=== PATIENT | female | born 1970 | race Caucasian/White ===

== ENCOUNTER 2019-05-25 08:37 | Outpatient (RCR) | payer BC, SELFPAY | END 2019-06-21 23:59 | disposition home or self-care (01) | LOC: SPT 08:37 | PROVIDERS: Family Provider Family Medicine; PCP Family Medicine; Referring Provider Family Medicine; Visit Provider Family Medicine | DX: N39.3 Stress incontinence (female) (male) (principal) | CPT/HCPCS: 97110; 97161; 97530 ==

== ENCOUNTER 2019-06-01 08:24 | Outpatient (CLI) | payer BC, SELFPAY ==
--- NOTE | 2019-06-01 08:26 | MM_ITS ---
WS: [id number] BILATERAL SCREENING MAMMOGRAM WITH ELVIA DISPLACEMENT VIEWS. CAD PERFORMED. HISTORY: SCREENING COMPARISON: 04/02/2018, 12/29/2016, 06/11/2015 Bilateral craniocaudal and mediolateral like views are performed. Elvia displacement views in CC and MLO projection also performed. Breasts composition: The breasts are heterogeneously dense, which may obscure small masses. Lobulated soft tissue mass seen best on the medial lateral displacement view. Mass is lobulated and o f increased density measuring 12 mm in diameter. Favor this is in the lateral LEFT breast on the CC p rojection. There is an additional asymmetry measuring 5 mm on the RIGHT implant displacement CC view. Not defini tely visualized on the lateral projection. Implants remain intact with no rupture. LEFT breast: Spot compression views (CC and MLO). True ML. Ultrasound to follow if abnormality persis ts. Additional ultrasound evaluation of the LEFT axilla.e RIGHT breast: Spot compression views (CC ). True ML. Ultrasound to follow if abnormality persists. MM/[place] [id number] IMPRESSION: BI-RADS: 0-Incomplete: Need additional imaging evaluation FOLLOW-UP: Need Additional Imaging
== END 2019-06-01 08:25 | disposition home or self-care (01) ==
LOC: RADSHAW 08:24
PROVIDERS: Family Provider Family Medicine; PCP Family Medicine; Visit Provider Family Medicine
DX: Z12.31 Encounter for screening mammogram for malignant neoplasm of breast (principal)
CPT/HCPCS: 77067

== ENCOUNTER 2019-06-09 07:41 | Outpatient (CLI) | payer BC, SELFPAY ==
--- NOTE | 2019-06-09 07:44 | US_ITS ---
WS: [id number] Left breast ultrasound, 06/09/2019 Clinical Data: LT BREAST MASS Comparison: Mammogram additional views, 06/09/2019 Findings: In the upper outer quadrant of the left breast at the 12:00 position approximating the site of the 1. 27 cm density on the mammogram there are several small simple cysts. No abnormal masses are seen. US/US breast LT limited* [id number] Impression: Simple cysts in the upper outer quadrant left breast with no masses. Recommend annual screening mammograms. BIRADS: 2-Benign FOLLOW UP: 1 Year Follow-up
--- NOTE | 2019-06-09 07:44 | MM_ITS ---
WS: [id number] Bilateral diagnostic digital mammogram, 06/09/2019 Clinical Data: LT BREAST MASS/RT BREAST ASYMMETRY Comparison: 06/01/2019, 04/02/2018, 12/29/2016, 06/11/2015, 05/28/2015, 04/03/2014, 07/11/2010, 11/06/2008, . Findings: Additional views of the right breast included mediolateral and cc compression views. No abnormal mass es could be seen on either view. Additional views of the left breast included ML, and spot films in the CC and MLO projections. There is a 1.27 cm density in the upper-outer quadrant of the left breast 4.5 cm from the areola. This is s een best on the MLO spot compression. This density is well bordered with no calcifications or spicula tions. MM/[place] [id number] Impression: 1. Negative right breast with no abnormal masses. 2. 1.27 cm density in the upper outer quadrant of the left breast. 3. Recommend left breast ultrasound BIRADS: 2-Benign FOLLOW UP: See Report The CAD fish checker was used.
== END 2019-06-09 07:42 | disposition home or self-care (01) ==
LOC: RADSHAW 07:43
PROVIDERS: Family Provider Family Medicine; PCP Family Medicine; Visit Provider Family Medicine
DX: N64.89 Other specified disorders of breast (principal); N63.21 Unspecified lump in the left breast, upper outer quadrant
CPT/HCPCS: 76642; 77066

== ENCOUNTER 2020-08-27 10:24 | Outpatient (CLI) | payer BC, SELFPAY ==
--- NOTE | 2020-08-27 | MM_ITS ---
WS: [id number] BILATERAL DIGITAL SCREENING MAMMOGRAPHY WITH CAD CLINICAL INFORMATION: SCREENING HISTORY: Screening mammogram. No current complaints. COMPARISON: June 01, 2019 TECHNIQUE: Bilateral CC and MLO views. FINDINGS: Bilateral breast implants. Implants. Mammographically intact. The breasts are composed of heterogeneous fibroglandular density tissue, which can limit the detectio n of small underlying mass lesions. A few punctate calcifications. Vascular calcifications. 11 mm asy mmetric density mid right breast best seen on the right cc view. This is new from previous and recomm end spot compression views and ultrasound for further evaluation. Left breast is unchanged. 11 mm ovoid density outer left breast measuring 11 mm is unchanged. MM/[place] [id number] IMPRESSION: BI-RADS: 0-Incomplete: Need additional imaging evaluation FOLLOW UP: Need Additional Imaging RECOMMEND RIGHT BREAST DIAGNOSTIC MAMMOGRAPHY WITH SPOT COMPRESSION VIEWS AND U LTRASOUND.
== END 2020-08-27 10:25 | disposition home or self-care (01) ==
LOC: RADSHAW 10:27
PROVIDERS: PCP Family Medicine; Visit Provider Family Medicine
DX: Z12.31 Encounter for screening mammogram for malignant neoplasm of breast (principal)
CPT/HCPCS: 77067

== ENCOUNTER 2020-09-28 09:18 | Outpatient (CLI) | payer BC, SELFPAY ==
--- NOTE | 2020-09-28 09:23 | US_ITS ---
WS: [id number] RIGHT DIGITAL MAMMOGRAPHY WITH CAD CLINICAL INFORMATION: RIGHT BREAST ASYMMETRY COMPARISON: August 27, 2020 TECHNIQUE: 3 views of the right breast were obtained. FINDINGS: Scattered fibroglandular densities of the right breast. Stable 11 mm asymmetric density mid right nicolasa ast best seen on the CC view. Ultrasound is pending. Bilateral breast implants. ULTRASOUND BREAST RIGHT TECHNIQUE: Ultrasound right breast focused area of concern. CLINICAL INFORMATION: RIGHT BREAST ASYMMETRY COMPARISON: None. FINDINGS: Ultrasound right breast at the 10-1 o'clock positions. Ultrasound at the 6 clock position. Multiple hypoechoic and anechoic simple cystic and slightly complex cystic lesions with a few septati ons. Cyst has a benign appearance. No suspicious lesions to target for biopsy. No solid lesions. US/US breast RT limited* [id number] IMPRESSION: BI-RADS: 2-Benign FOLLOW UP: 1 Year Follow-up Recommend return to annual screening mammography.
== END 2020-09-28 09:19 | disposition home or self-care (01) ==
LOC: RADSHAW 09:22
PROVIDERS: PCP Family Medicine; Visit Provider Family Medicine
DX: N64.89 Other specified disorders of breast (principal)
CPT/HCPCS: 76642; 77065

== ENCOUNTER 2021-12-24 09:19 | Outpatient (CLI) | payer BC, SELFPAY ==
--- NOTE | 2021-12-24 09:23 | MM_ITS ---
WS: [id number] BILATERAL SCREENING DIGITAL BREAST MAMMOGRAPHY WITH ELVIA DISPLACEMENT VIEWS. CAD PERFORMED. HISTORY: SCREENING COMPARISON: 09/28/2020, 08/27/2020 and 06/01/2019 Bilateral craniocaudal and mediolateral oblique views are performed with tomosynthesis and SM. Elvia displacement views in CC and MLO projection also performed. Breasts composition: There are scattered areas of fibroglandular density. Implants are intact. No extravasation or collapse. No suspicious mass or calcification. MM/[place] [id number] IMPRESSION: BI-RADS: 2-Benign FOLLOW-UP: 1 Year Follow-up
== END 2021-12-24 09:20 | disposition home or self-care (01) ==
LOC: RAD 09:19
PROVIDERS: PCP Family Medicine; Visit Provider Family Medicine
DX: Z12.31 Encounter for screening mammogram for malignant neoplasm of breast (principal)
CPT/HCPCS: 77063; 77067

== ENCOUNTER 2023-01-26 11:14 | Outpatient (CLI) | payer BC, SELFPAY ==
--- NOTE | 2023-01-26 12:23 | MM_ITS ---
WS: [id number] BILATERAL 3D TOMOSYNTHESIS DIGITAL SCREENING MAMMOGRAPHY WITH CAD CLINICAL INFORMATION: SCREENING HISTORY: Screening mammogram. No current complaints. COMPARISON: 2021 TECHNIQUE: Bilateral CC and MLO views. FINDINGS: Stable bilateral breast implants. Scattered fibroglandular densities bilaterally. No suspicious focal mass, asymmetry, calcifications, or architectural distortion. No evidence of malignancy. Few incidental punctate calcifications. IMPRESSION: MM/[place] [id number] BI-RADS: 2-Benign FOLLOW UP: 1 Year Follow-up Recommend return to annual screening mammography.
== END 2023-01-26 11:15 | disposition home or self-care (01) ==
LOC: RAD 11:14
PROVIDERS: PCP Family Medicine; Visit Provider Family Medicine
DX: Z12.31 Encounter for screening mammogram for malignant neoplasm of breast (principal)
CPT/HCPCS: 77063; 77067

== ENCOUNTER → 2023-11-20 11:52 | Outpatient (BNVA) | payer BC, SELFPAY | PROVIDERS: PCP Nurse Practitioner Family; Visit Provider Nurse Practitioner Family | DX: D72.819 Decreased white blood cell count, unspecified (principal) | CPT/HCPCS: 80053; 85025 ==

== ENCOUNTER → 2023-12-28 08:42 | Outpatient (BNVA) | payer BC, SELFPAY | PROVIDERS: PCP Nurse Practitioner Family; Visit Provider Nurse Practitioner Family | DX: D72.819 Decreased white blood cell count, unspecified (principal) | CPT/HCPCS: 80053; 85025 ==

== ENCOUNTER → 2024-01-11 09:44 | Outpatient (BNVA) | payer BC, SELFPAY | PROVIDERS: PCP Nurse Practitioner Family; Visit Provider Nurse Practitioner Family | DX: D72.819 Decreased white blood cell count, unspecified (principal) | CPT/HCPCS: 80048; 80503; 85025 ==

== ENCOUNTER → 2024-04-20 13:18 | Outpatient (BNVA) | payer BC, SELFPAY | PROVIDERS: PCP Nurse Practitioner Family; Visit Provider Nurse Practitioner Family | DX: D72.819 Decreased white blood cell count, unspecified (principal) | CPT/HCPCS: 80053; 85025 ==

== ENCOUNTER 2024-05-20 09:20 | Outpatient (CLI) | payer BC, SELFPAY ==
--- NOTE | 2024-05-20 09:21 | MM_ITS ---
WS: [id number] BILATERAL SCREENING DIGITAL BREAST MAMMOGRAPHY WITH ELVIA DISPLACEMENT VIEWS. CAD PERFORMED. HISTORY: SCREENING COMPARISON: 01/26/2023, 06/01/2019 and 08/27/2020 Bilateral craniocaudal and mediolateral oblique views are performed with tomosynthesis and SM. Elvia displacement views in CC and MLO projection also performed. Breasts composition: The breasts are heterogeneously dense, which may obscure small masses. Implants are intact. No collapse or extravasation. There are a few benign calcifications scattered within the LEFT breast. No suspicious mass. No architectural distortion. MM/MM scr [place] tomosynthesis [id number] IMPRESSION: BI-RADS: 2 - Benign FOLLOW-UP: 1 Year Follow-up
== END 2024-05-20 09:21 | disposition home or self-care (01) ==
PROVIDERS: PCP Nurse Practitioner Family; Visit Provider Nurse Practitioner Family
DX: Z12.31 Encounter for screening mammogram for malignant neoplasm of breast (principal); R92.333 Mammographic heterogeneous density, bilateral breasts; Z98.82 Breast implant status; R92.1 Mammographic calcification found on diagnostic imaging of breast
CPT/HCPCS: 77063; 77067

== ENCOUNTER → 2024-11-28 13:11 | Outpatient (BNVA) | payer BC, SELFPAY | PROVIDERS: PCP Nurse Practitioner Family; Visit Provider Nurse Practitioner Family | DX: I10 Essential (primary) hypertension (principal); D72.819 Decreased white blood cell count, unspecified | CPT/HCPCS: 80053; 80061; 82306; 82607; 85025 ==

== ENCOUNTER → 2025-01-31 09:10 | Outpatient (BNVA) | payer BC, SELFPAY | PROVIDERS: PCP Nurse Practitioner Family; Visit Provider Nurse Practitioner Family | DX: E87.6 Hypokalemia (principal) | CPT/HCPCS: 80048 ==